=== PATIENT | female | born 1940 | race Caucasian/White ===

== ENCOUNTER → 2017-09-24 | Outpatient (CLI) | payer MEDICARE, BC ==
[~2017-09-24] MED LIST: ACET-3017 PO; ASPI-1471 PO; BECL8.7A6 IH; BUDE0.5A6 IH; CELE-1 PO; CELE100C79 PO; CHOL10005 PO; CYCL-277 PO; DULO30CA6 PO; FORM20VI IH; GEMF600T91 PO; HYDR-385 PO; HYDR12.561 PO; LEVO125T77 PO; LISI-362 PO; LISI5TAB25 PO; LORA-629 PO; MELO-149 PO; METF500T4 PO; PRED-1 PO; PRED20TA6 PO; ROS10 PO; TIO18R INH; TRAM-420 PO; WHEE1EAC MC
[2017-09-24 13:28] LABS: PLATELET COUNT, AUTOMATED 175 K/uL (150-450)
[2017-09-24 13:35] LABS: LDL CHOLESTEROL 130 mg/dl
== END ==
LOC: LAB 10:34
PROVIDERS: ATTEND Nurse Practitioner Family
DX: E11.9 Type 2 diabetes mellitus without complications (principal); E78.5 Hyperlipidemia, unspecified; E03.9 Hypothyroidism, unspecified; I10 Essential (primary) hypertension
CPT/HCPCS: 36415; 82040; 82247; 82310; 82374; 82435; 82465; 82565; 82947; 83036; 83718; 84075; 84132; 84155; 84295; 84443; 84450; 84460; 84478; 84520; 85025

== ENCOUNTER → 2018-04-28 | Outpatient (CLI) | payer MEDICARE, BC ==
[~2018-04-28] MED LIST changes: -GEMF600T91 PO; +GEMF600T92 PO; +LEVO112T44 PO; +LOSA100T69 PO
[2018-04-28 15:31] LABS: PLATELET COUNT, AUTOMATED 222 K/uL (150-450)
[2018-04-28 16:02] LABS: LDL CHOLESTEROL 99 mg/dl
== END ==
LOC: LAB 15:07
PROVIDERS: ATTEND Nurse Practitioner Family
DX: E78.5 Hyperlipidemia, unspecified (principal); E11.49 Type 2 diabetes mellitus with other diabetic neurological complication; I10 Essential (primary) hypertension
CPT/HCPCS: 36415; 82040; 82247; 82310; 82374; 82435; 82465; 82565; 82947; 83036; 83718; 84075; 84132; 84155; 84295; 84443; 84450; 84460; 84478; 84520; 85025

== ENCOUNTER → 2018-07-21 | Outpatient (CLI) | payer MEDICARE, BC ==
[~2018-07-21] MED LIST changes: -GEMF600T92 PO; +GEMF600T96 PO; -LOSA100T69 PO; +LOSA100T75 PO
== END ==
LOC: LAB 13:28
PROVIDERS: ATTEND Nurse Practitioner Family
DX: E03.9 Hypothyroidism, unspecified (principal)
CPT/HCPCS: 36415; 84443

== ENCOUNTER → 2018-08-01 | Outpatient (CLI) | payer MEDICARE, BC ==
--- NOTE | 2018-08-01 15:49 | RADIOLOGY IMAGING REPORT ---
FACILITY: [facility] [place] PATIENT NAME: Frances Freeman : 1940 MR: [id number] V: [id number] EXAM DATE: ORDERING PHYSICIAN: MARILIN MARSHALL TECHNOLOGIST: Location: [facility] [place] Patient: Frances Freeman : 1940 Visit/Account:[id number] Date of Sevice: 08/01/2018 Technique: CHEST PA LAT HISTORY: COPD Comparison studies: None FINDINGS: No acute airspace consolidation. There is pulmonary hyperexpansion. Increased interstitia l lung markings noted. Atherosclerotic changes are seen within the thoracic aorta. The cardiac silh ouette is otherwise unremarkable. IMPRESSION: 1. Chronic findings as characterized above. Report Dictated By: Cm Luna DO at 08/01/2018 3:43 PM Report E-Signed By: Cm Luna DO at 08/01/2018 3:44 PM WSN:[id number]
== END ==
LOC: RAD 14:56
PROVIDERS: ATTEND Internal Medicine
DX: I70.0 Atherosclerosis of aorta (principal)
CPT/HCPCS: 71046

== ENCOUNTER → 2018-11-11 | Outpatient (CLI) | payer MEDICARE, BC ==
[~2018-11-11] MED LIST changes: -ROS10 PO; +ROSU10TA PO; +VARI50KI IM
[2018-11-11 17:34] LABS: LDL CHOLESTEROL 108 mg/dl; PLATELET COUNT, AUTOMATED 198 K/uL (150-450)
== END ==
LOC: LAB 16:05
PROVIDERS: ATTEND Nurse Practitioner Family
DX: J44.9 Chronic obstructive pulmonary disease, unspecified (principal); E11.49 Type 2 diabetes mellitus with other diabetic neurological complication; E78.00 Pure hypercholesterolemia, unspecified; I10 Essential (primary) hypertension
CPT/HCPCS: 36415; 82040; 82247; 82310; 82374; 82435; 82465; 82565; 82947; 83036; 83718; 84075; 84132; 84155; 84295; 84443; 84450; 84460; 84478; 84520; 85025